=== PATIENT | female | born 1975 | race Two or more races ===

== ENCOUNTER 2017-07-10 06:15 | Emergency (ER) | payer MEDICAID ==
[~2017-07-10] VITALS: Ht 162.6 cm; Wt 147.4 kg
[2017-07-10 06:27] VITALS: BP 122/82
[2017-07-10] MEDS ORDERED: METHOCARBAMOL 500 MG TAB PO ONE (07:15)
[2017-07-10] MEDS ORDERED: KETOROLAC TROMETH 60MG/2ML VIAL IM ONE (07:15)
== END 2017-07-10 08:49 | disposition home or self-care (01) ==
LOC: ER 06:19
DX: M16.11 Unilateral primary osteoarthritis, right hip (principal); M47.896 Other spondylosis, lumbar region; M19.90 Unspecified osteoarthritis, unspecified site; J45.909 Unspecified asthma, uncomplicated; F17.210 Nicotine dependence, cigarettes, uncomplicated; Z90.710 Acquired absence of both cervix and uterus
CPT/HCPCS: 72110; 73502; 96372; 99284; J1885

== ENCOUNTER 2017-08-22 17:06 | Emergency (ER) | payer MEDICAID ==
[~2017-08-22] VITALS: Ht 162.6 cm; Wt 147.4 kg
[2017-08-22] MEDS ORDERED: LIDOCAINE HCL 2% TOP JELLY 5ML TOP ONE ×2 (17:18→17:45)
[2017-08-22 17:39] VITALS: BP 118/100
== END 2017-08-22 18:15 | disposition home or self-care (01) ==
LOC: ER 17:06
DX: T16.1XXA Foreign body in right ear, initial encounter (principal); J45.909 Unspecified asthma, uncomplicated; F17.210 Nicotine dependence, cigarettes, uncomplicated; Z83.3 Family history of diabetes mellitus; Z82.49 Family history of ischemic heart disease and other diseases of the circulatory system; X58.XXXA Exposure to other specified factors, initial encounter; Y93.89 Activity, other specified; Y92.89 Other specified places as the place of occurrence of the external cause; Y99.8 Other external cause status

== ENCOUNTER 2018-05-15 08:17 | Inpatient (IN) | payer MEDICAID, OTHER ==
[~2018-05-15] VITALS: Ht 165.1 cm; Wt 159.1 kg
[2018-05-15 09:25] LABS: Urine Bacteria FEW /hpf (None Seen); Urine Blood Negative /uL (Negative); Urine Mucus FEW (None Seen); Urine Specific Gravity 1.013 (1.001-1.035); Urine WBC 2 /hpf (0 - 5)
[2018-05-15] MEDS ORDERED: FUROSEMIDE 40 MG/4 ML VIAL IV ONE (09:30)
[2018-05-15 10:03] LABS: Basophils # (auto) 0 uL; Basophils % (auto) 0.6 % (0.0-2.0); Eosinophils # (auto) 0.1 uL; Eosinophils % (auto) 1.5 % (0.0-7.0); Hematocrit 31.4 % (36.0-46.0); Hemoglobin 10.4 g/dL (12.2-16.2); Lymphocytes # (auto) 1.6 uL; Lymphocytes % (auto) 20.1 % (10.0-50.0); Mean Corpuscular Hemoglobin 28.4 pg (28.0-32.0); Mean Corpuscular Hgb Conc. 33.2 g/dL (32.0-36.0); Mean Corpuscular Volume 85.4 fL (80.0-100.0); Monocytes # (auto) 0.3 uL; Monocytes % (auto) 3.9 % (0.0-12.0); Neutrophils # (auto) 5.8 uL; Neutrophils % (auto) 73.9 % (37.0-80.0); Platelet Count (auto) 260 10^3/uL (140-450); Red Blood Cells 3.67 10^6/uL (4.0-5.20); Red Cell Distribution Width 15.6 % (11.8-14.3); White Blood Cell 7.9 10^3/uL (4.4-10.8)
[2018-05-15 10:13] LABS: Magnesium 2.2 mg/dL (1.6-2.6)
[2018-05-15 10:45] LABS: INR 0.91 (0.9-1.15); Partial Thromboplastin Time 29.1 sec (23.78-33.04); Prothrombin Time 9.8 sec (9.27-12.13)
[2018-05-15] MEDS ORDERED: MORPHINE SULFATE 4 MG/ML SYR/VIAL IV PRN (11:00)
[2018-05-15] MEDS ORDERED: ALUM & MAG HYDROX-SIMETH LIQ(MAALOX) 30 ML PO ONE (11:00)
[2018-05-15] MEDS ORDERED: ONDANSETRON HCL 4 MG/2 ML VIAL IV PRN (11:00)
[2018-05-15] MEDS ORDERED: ACETAMINOPHEN 325 MG TAB PO PRN (11:00)
[2018-05-15] MEDS ORDERED: MORPHINE SULF INJ 2 MG/ML SYRINGE 1ML IV PRN (11:00)
[2018-05-15] MEDS ORDERED: NITROGLYCERIN 0.4 MG SL TAB SL PRN ×2 (11:00)
[2018-05-15] MEDS ORDERED: POTASSIUM CHL 10 Meq TABLET PO ONE (11:15)
[2018-05-15 11:32] LABS: Albumin 3.3 g/dL (3.4-5.0); Bilirubin, Total 0.4 mg/dL (0.2-1.0); Calcium 8.8 mg/dL (8.5-10.1); Potassium 3.9 mmol/L (3.5-5.1); Total Protein 7.5 g/dL (6.4-8.2)
[2018-05-15] MEDS: ASPirin 81 mg TAB PO SCH (11:32)
[2018-05-15] MEDS ORDERED: IOHEXOL 350 MG/ML 100ML IJ ONE (11:57)
[2018-05-15] MEDS: SODIUM CHLOR 0.9% PF (SALINE LOCK) 10ML VIAL/SYR IV SCH ×2 (14:05→22:33)
[2018-05-15] MEDS: GABAPENTIN 300 MG CAP PO SCH ×2 (14:08→22:33)
[2018-05-15] MEDS: HYDROcodone-ACET 10/325MG TAB PO PRN (14:30)
[2018-05-15] MEDS ORDERED: IBUP800T24 PO (14:44)
[2018-05-15] MEDS ORDERED: GABA300C10 PO (14:44)
[2018-05-15] MEDS ORDERED: HYDR-531 PO (14:45)
[2018-05-15 14:59] VITALS: BP 123/66
[2018-05-15 16:02] VITALS: BP 123/66
[2018-05-15 17:13] VITALS: BP 128/70
[2018-05-15] MEDS ORDERED: FUROSEMIDE 40 MG/4 ML VIAL IV SCH (18:00)
[2018-05-15] MEDS: IPRATROPIUM BROM 0.5 MG/2.5ML INH SOL NEB SCH (19:20)
[2018-05-15] MEDS: ALBUTEROL SULF 2.5 MG/0.5ML(0.5%) NEB SOLN NEB SCH (19:20)
[2018-05-15] MEDS: BUDESONIDE (INHALATION) 0.5 MG/2 ML NEB NEB SCH (19:21)
[2018-05-15 22:00] VITALS: BP 126/56
[2018-05-15] MEDS ORDERED: CARVEDILOL 3.125 MG TAB PO SCH (22:00)
[2018-05-15] MEDS ORDERED: ATORVASTATIN 20 MG TAB PO SCH (22:00)
[2018-05-15] MEDS: LORazepam 0.5 MG TAB PO PRN (22:33)
[2018-05-15] MEDS: POTASSIUM CHL 10 Meq TABLET PO SCH (22:34)
[2018-05-15] MEDS: ZOLPIDEM TARTRATE 5 MG TAB PO PRN (22:34)
[2018-05-15] MEDS: ENALAPRIL MALEATE 2.5 MG TAB PO SCH (22:35)
[2018-05-16] MEDS: ALBUTEROL SULF 2.5 MG/0.5ML(0.5%) NEB SOLN NEB SCH ×4 (00:56→19:28)
[2018-05-16] MEDS: IPRATROPIUM BROM 0.5 MG/2.5ML INH SOL NEB SCH ×4 (00:56→19:28)
[2018-05-16 05:24] VITALS: BP 104/51
[2018-05-16] MEDS: BUDESONIDE (INHALATION) 0.5 MG/2 ML NEB NEB SCH ×2 (06:08→19:28)
[2018-05-16] MEDS: GABAPENTIN 300 MG CAP PO SCH ×3 (06:22→21:56)
[2018-05-16] MEDS: SODIUM CHLOR 0.9% PF (SALINE LOCK) 10ML VIAL/SYR IV SCH ×3 (06:22→21:57)
[2018-05-16 07:14] LABS: Basophils # (auto) 0 uL; Basophils % (auto) 0.5 % (0.0-2.0); Eosinophils # (auto) 0.1 uL; Hematocrit 30.9 % (36.0-46.0); Hemoglobin 10.2 g/dL (12.2-16.2); Lymphocytes # (auto) 1.5 uL; Lymphocytes % (auto) 22.3 % (10.0-50.0); Mean Corpuscular Hemoglobin 28.4 pg (28.0-32.0); Mean Corpuscular Hgb Conc. 32.9 g/dL (32.0-36.0); Mean Corpuscular Volume 86.4 fL (80.0-100.0); Monocytes # (auto) 0.4 uL; Monocytes % (auto) 6.3 % (0.0-12.0); Neutrophils # (auto) 4.6 uL; Neutrophils % (auto) 68.9 % (37.0-80.0); Platelet Count (auto) 249 10^3/uL (140-450); Red Blood Cells 3.58 10^6/uL (4.0-5.20); Red Cell Distribution Width 15.8 % (11.8-14.3); White Blood Cell 6.8 10^3/uL (4.4-10.8)
[2018-05-16 07:48] LABS: Albumin 3.2 g/dL (3.4-5.0); BUN/Creatinine Ratio 31.6; Bilirubin, Total 0.3 mg/dL (0.2-1.0); Calcium 8.4 mg/dL (8.5-10.1); Magnesium 2.4 mg/dL (1.6-2.6); Potassium 3.8 mmol/L (3.5-5.1); Total Protein 7.3 g/dL (6.4-8.2)
[2018-05-16 09:00] VITALS: BP 102/62
[2018-05-16] MEDS: ASPirin 81 mg TAB PO SCH (09:58)
[2018-05-16] MEDS: DOCUSATE SOD 100 MG CAP PO SCH (09:58)
[2018-05-16] MEDS ORDERED: CLOPIDOGREL BISULFATE 75 MG TAB PO SCH (10:00)
[2018-05-16] MEDS: POTASSIUM CHL 10 Meq TABLET PO SCH ×2 (10:00→21:56)
[2018-05-16] MEDS ORDERED: amLODIPine BESYLATE 5 MG TAB PO SCH (10:00)
[2018-05-16] MEDS: LOSARTAN POTASSIUM 50 MG TAB PO SCH (10:00)
[2018-05-16] MEDS: ENALAPRIL MALEATE 2.5 MG TAB PO SCH (10:00)
[2018-05-16] MEDS: HCTZ 25 MG TAB PO SCH (10:01)
[2018-05-16] MEDS: HYDROcodone-ACET 10/325MG TAB PO PRN (10:08)
[2018-05-16 13:00] VITALS: BP 124/65
[2018-05-16] MEDS ORDERED: FUROSEMIDE 40 MG/4 ML VIAL IV ONE (14:45)
[2018-05-16 17:00] VITALS: BP 132/61
[2018-05-16 20:00] VITALS: BP 112/61
[2018-05-16] MEDS: ZOLPIDEM TARTRATE 5 MG TAB PO PRN (21:56)
[2018-05-16 22:00] VITALS: BP 112/61
[2018-05-16] MEDS: LORazepam 0.5 MG TAB PO PRN (22:00)
[2018-05-17] MEDS: ALBUTEROL SULF 2.5 MG/0.5ML(0.5%) NEB SOLN NEB SCH ×3 (00:58→12:07)
[2018-05-17] MEDS: IPRATROPIUM BROM 0.5 MG/2.5ML INH SOL NEB SCH ×3 (00:58→12:07)
[2018-05-17 05:00] VITALS: BP 139/63
[2018-05-17] MEDS: SODIUM CHLOR 0.9% PF (SALINE LOCK) 10ML VIAL/SYR IV SCH ×2 (05:59→13:55)
[2018-05-17] MEDS: HYDROcodone-ACET 10/325MG TAB PO PRN (06:01)
[2018-05-17] MEDS: GABAPENTIN 300 MG CAP PO SCH ×2 (06:03→13:55)
[2018-05-17] MEDS: BUDESONIDE (INHALATION) 0.5 MG/2 ML NEB NEB SCH (06:09)
[2018-05-17 08:55] LABS: BUN/Creatinine Ratio 22.2; Calcium 8.9 mg/dL (8.5-10.1); Potassium 4.1 mmol/L (3.5-5.1)
[2018-05-17 09:13] VITALS: BP 141/80
[2018-05-17] MEDS: POTASSIUM CHL 10 Meq TABLET PO SCH (09:17)
[2018-05-17] MEDS: DOCUSATE SOD 100 MG CAP PO SCH (09:17)
[2018-05-17] MEDS: HCTZ 25 MG TAB PO SCH (09:18)
[2018-05-17] MEDS: LOSARTAN POTASSIUM 50 MG TAB PO SCH (09:19)
[2018-05-17] MEDS ORDERED: POTASSIUM CHL 20 Meq TABLET PO ONE (12:30)
[2018-05-17 12:49] VITALS: BP 141/80
[2018-05-17 13:00] VITALS: BP 146/97
[2018-05-17] MEDS: MAGNESIUM SULFATE 1GM/100ML 100 ML IV SCH ×2 (13:55→15:06)
[2018-05-17 17:16] VITALS: BP 134/73
== END 2018-05-17 18:05 | disposition home or self-care (01) | DRG 194 ==
LOC: ER 08:17 → TELE 08:18 → TELE-WESTW 13:06 → WEST WING 05-16 19:17
PROVIDERS: ADMIT Internal Medicine; ATTEND Internal Medicine
DX: I11.0 Hypertensive heart disease with heart failure (principal); E66.01 Morbid (severe) obesity due to excess calories; J45.901 Unspecified asthma with (acute) exacerbation; Z68.43 Body mass index [BMI] 50.0-59.9, adult; D63.8 Anemia in other chronic diseases classified elsewhere; N39.0 Urinary tract infection, site not specified; I70.90 Unspecified atherosclerosis; I50.43 Acute on chronic combined systolic (congestive) and diastolic (congestive) heart failure; M19.90 Unspecified osteoarthritis, unspecified site; G47.30 Sleep apnea, unspecified; F17.210 Nicotine dependence, cigarettes, uncomplicated; Z79.899 Other long term (current) drug therapy; Z82.49 Family history of ischemic heart disease and other diseases of the circulatory system; Z83.3 Family history of diabetes mellitus; Z90.710 Acquired absence of both cervix and uterus
CPT/HCPCS: 36415; 71045; 71275; 80048; 80053; 80061; 81001; 83735; 83880; 84443; 84484; 85025; 85379; 85610; 85730; 93005; 93306; 93970; 94640; 96374